=== PATIENT | male | born 1945 | race Caucasian/White ===

== ENCOUNTER 2017-11-13 19:09 | Inpatient (IN) | payer MEDICARE, BC ==
[~2017-11-13 19:09] MED LIST: Gadobenate Dimeglumine 529 MG/1 ML (20ML VIAL) ONE
[2017-11-13 20:04] LABS: #Basophils 0.1 thou/uL (0.0-0.2); #Eosinphils 0.2 thou/uL (0.0-0.7); #Lymphocytes 1.6 thou/uL (1.20-3.40); #Monocytes 0.6 thou/uL (0.11-0.59); #Neutrophils 3.3 thou/uL (1.40-6.50); %Basophils 1.6 % (0.0-1.0); %Lymphocytes 27.7 % (21.0-51.0); %Monocytes 10.2 % (0.0-10.0); %Neutrophils 57.4 % (42.0-75.0); Mean Corpuscular HGB CONC 32.8 g/dL (32.0-36.0); Mean Corpuscular Hemoglobin 30.6 pg (27.0-31.0); Mean Corpuscular Volume 93.2 fl (80.0-94.0); Mean Platelet Volume 8.4 fL (7.4-10.4); Platelet Count 198 thou/uL (130-400); RBC Distribution Width 12.6 % (11.5-14.5); White Blood Cell (WBC) Count 5.8 thou/uL (4.8-10.8)
[2017-11-13 20:12] LABS: INR-International Normal Ratio 1.1; PTT 27.5 SEC (22.9-36.1); Prothrombin Time 13.8 SEC (12.0-14.7)
[2017-11-13 20:14] LABS: Lactic Acid 0.9 mmol/L (0.5-2.2)
[2017-11-13 20:19] LABS: ALT (SGPT) 19 U/L (8-55); AST (SGOT) 18 U/L (5-34); Alkaline Phosphatase 84 U/L (40-150); Anion Gap 12 mmol/L (10-20); BUN (Urea Nitrogen) 18 mg/dL (8.4-25.7); Bilirubin, Total 0.6 mg/dL (0.2-1.2); Calc. Creatinine Clearance 0 mL/min (70-130); Calcium 9.1 mg/dL (7.8-10.44); Carbon Dioxide 28 mmol/L (23-31); Chloride 107 mmol/L (98-107); Estimated GFR-MDRD 75; Globulin 3.1 g/dL (2.4-3.5); Glucose 82 mg/dL (83-110); Potassium 3.8 mmol/L (3.5-5.1); Protein, Total 7.1 g/dL (5.8-8.1); Sodium 143 mmol/L (136-145)
[2017-11-13] MEDS ORDERED: Mag-Al 1200 mg/1200 mg/30 ML UDCUP PO PRN (20:50)
[2017-11-13] MEDS ORDERED: Milk Of Magnesia 30 ML UDCUP PO PRN (20:50)
[2017-11-13] MEDS ORDERED: Labetalol HCl 100 MG/20 ML VIAL SLOW IVP PRN (20:50)
[2017-11-13] MEDS ORDERED: Acetaminophen 325 MG TAB PO PRN (20:50)
[2017-11-13] MEDS ORDERED: niCARdipine 20MG in NaCl 200 ML BAG IVPB PRN (20:50)
[2017-11-13] MEDS ORDERED: Ondansetron HCl/PF 4 MG/2 ML Vial IVP PRN (20:50)
[2017-11-13] MEDS ORDERED: CCU Electrolyte Replacement 1 EACH IVPB ONE (20:50)
--- NOTE | 2017-11-13 20:53 | CT ---
CT OF THE BRAIN WITHOUT CONTRAST: 11/13/17 COMPARISON: 05/31/15 HISTORY: Headache and confusion of new onset. Partial aphasia. TECHNIQUE: Multiple contiguous axial images were obtained in a CT of the brain without contrast. FINDINGS: There is a 2.8 cm area of hemorrhage in the right frontal lobe. There may be a small amount of adjace nt subarachnoid hemorrhage within the sulci of the right frontal lobe. There is slight mass effect fr om edema secondary to this hemorrhage. No interventricular hemorrhage is seen. No downward shift is seen. There is no evidence of hydrocephalus. The calvarium and overlying soft tissues are unremarkable. The visualized paranasal sinuses and masto id air cells are well aerated. IMPRESSION: New right frontal lobe parenchymal hemorrhage with surrounding subarachnoid hemorrhage. An MRI of the brain is recommended on a nonemergent basis to exclude an underlying lesion as this is not a typical site for hypertensive hemorrhage. Dr. Saldana notified of the findings at 8:05 p.m. on 11/13/17. POS: PETRA
[2017-11-13] MEDS ORDERED: niCARdipine HCl 25 MG in Sodium Chloride 0.9% 250 ML 240 ML IVPB PRN (21:08)
--- NOTE | 2017-11-13 22:47 | MRI ---
MRA OF THE BRAIN WITHOUT CONTRAST: 11/13/17 COMPARISON: CT of the brain 11/13/17. HISTORY: New onset of confusion and intraparenchymal hemorrhage in the right frontal lobe. Evaluate for underl dez lesion. TECHNIQUE: An MRA of the brain was performed without contrast using 3D [id number] imaging. 3D rotational ref ormats were performed. FINDINGS: The bilateral intracranial internal carotid arteries are normal in appearance. These branch in a norm al appearing anterior and middle cerebral arteries. There is no evidence of aneurysmal dilatation, fo hans stenosis, or occlusion in the anterior circulation. Both vertebral arteries form a normal appearing basilar artery. The posterior cerebral arteries and c erebellar arteries are patent. There is no evidence of focal stenosis, occlusion or aneurysmal dilata tion in the posterior circulation. A lesion is seen in the right frontal lobe demonstrating high T1 signal and represents the areas of h emorrhage seen on CT. No obvious lesion is seen on this exam, but the MRI of the brain with contrast would be more sensitive. IMPRESSION: No significant intracranial vascular abnormality. POS: PETRA
[2017-11-13] MEDS ORDERED: Loratadine 10 MG TAB PO PRN (22:51)
[2017-11-13] MEDS ORDERED: Diabetic Tussin 200 MG/10 ML UDCUP PO PRN (22:51)
[2017-11-13] MEDS ORDERED: Temazepam 15 MG CAP PO PRN (22:51)
[2017-11-13] MEDS ORDERED: Sodium Chloride 0.65% Nasal 44 ML BOT EA NARE PRN (22:51)
[2017-11-13] MEDS ORDERED: Artificial Tears 18 DROP/0.9 ML EA EYE PRN (22:51)
[2017-11-13] MEDS ORDERED: hydrALAZINE 20 MG/ML VIAL SLOW IVP PRN (22:51)
[2017-11-13] MEDS ORDERED: Ondansetron ODT 4 MG TAB PO PRN (22:51)
[2017-11-13] MEDS ORDERED: Senokot 8.6 MG TAB PO PRN (22:51)
[2017-11-13] MEDS ORDERED: HYDROcodone/Acetaminophen 5/325 mg Tablet PO PRN (22:51)
[2017-11-13] MEDS ORDERED: Eucerin (Mineral Oil/Petrolatum,White) 30 gm Jar TOP PRN (22:51)
[2017-11-13] MEDS ORDERED: Chloraseptic Spray 180 ml Bottle PO PRN (22:51)
--- NOTE | 2017-11-13 23:22 | MRI ---
MRA OF THE NECK WITHOUT AND WITH CONTRAST 11/13/17 COMPARISON: None. HISTORY: Headache and confusion. Intracranial hemorrhage. TECHNIQUE: An MRA of the neck was performed without and with IV contrast. 3D rotation reformats were performed. FINDINGS: This exam is limited secondary to significant venous contamination. On the noncontrast examination, t he common and internal carotid arteries appear to be patent without significant irregularity to sugge st significant atherosclerotic disease. The bilateral vertebral arteries also show no significant irr egularity to suggest atherosclerotic disease. IMPRESSION: No significant MRA abnormality of the neck. Please note that the postcontrast images are limited seco ndary to venous contamination. POS: GISELE
[2017-11-13] MEDS: Famotidine/PF 20 mg/2ml Vial SLOW IVP SCH (23:42)
[2017-11-13] MEDS: Sodium Chloride 0.9% 1,000 ML IV SCH (23:43)
--- NOTE | 2017-11-13 23:43 | MRI ---
MRI OF THE BRAIN WITHOUT AND WITH CONTRAST 11/13/17 COMPARISON: CT brain 11/13/17 and MRA brain 11/13/17. HISTORY: Right frontal parenchymal hemorrhage. Evaluate for underlying lesion as a cause for this hemorrhage. TECHNIQUE: Multiplanar and multisequence MR images were obtained of the brain without and with IV contrast. FINDINGS: This exam is limited secondary to significant motion artifact. There is a large area of hemorrhage in the right frontal lobe demonstrating high T1 signal and susceptibility/blooming artifact secondary t o blood products. The area where the high T1 signal is present is isodense to slightly dark on the T2 sequence. This most likely represents intracellular methemoglobin and is likely a bleed that occurre d approximately 2 to 7 days ago. There is a small amount of surrounding edema. There are scattered foci of high T2/FLAIR signal in the subcortical and periventricular white matter, likely secondary to small vessel ischemic disease. No abnormal signal is seen in the region of the h emorrhage to suggest an underlying vascular malformation or mass as a cause for this hemorrhage, but evaluation is limited given the significant motion artifact. The expected flow voids are present. The corpus callosum, pituitary, and craniocervical junction are unremarkable. The calvarium and overlying soft tissues are unremarkable. The visualized paranasal sinuses and masto id air cells are well aerated. IMPRESSION: Right frontal hemorrhage does not appear to have an underlying lesion as a cause for this hemorrhage. Evaluation is limited given the significant motion artifact on this exam. POS: [facility]
[2017-11-14 03:36] VITALS: BMI 24.7
[2017-11-14 04:45] LABS: #Basophils 0.1 thou/uL (0.0-0.2); #Eosinphils 0.2 thou/uL (0.0-0.7); #Lymphocytes 1.5 thou/uL (1.20-3.40); #Monocytes 0.5 thou/uL (0.11-0.59); #Neutrophils 3.3 thou/uL (1.40-6.50); %Basophils 1.7 % (0.0-1.0); %Eosinophils 3.5 % (0.0-10.0); %Lymphocytes 27.2 % (21.0-51.0); %Monocytes 9.5 % (0.0-10.0); %Neutrophils 58.1 % (42.0-75.0); Hemoglobin 16.2 g/dL (14.0-18.0); Mean Corpuscular HGB CONC 33.7 g/dL (32.0-36.0); Mean Corpuscular Hemoglobin 32.3 pg (27.0-31.0); Mean Corpuscular Volume 95.8 fl (80.0-94.0); Mean Platelet Volume 7.5 fL (7.4-10.4); Platelet Count 172 thou/uL (130-400); RBC Distribution Width 12.7 % (11.5-14.5); Red Blood Cell (RBC) Count 5.01 mill/uL (4.70-6.10); White Blood Cell (WBC) Count 5.6 thou/uL (4.8-10.8)
[2017-11-14 04:52] LABS: Anion Gap 12 mmol/L (10-20); BUN (Urea Nitrogen) 12 mg/dL (8.4-25.7); Calc. Creatinine Clearance 120 mL/min (70-130); Carbon Dioxide 24 mmol/L (23-31); Chloride 107 mmol/L (98-107); Estimated GFR-MDRD Greater than 90; Glucose 96 mg/dL (83-110); Potassium 3.5 mmol/L (3.5-5.1); Sodium 139 mmol/L (136-145)
[2017-11-14] MEDS: Famotidine/PF 20 mg/2ml Vial SLOW IVP SCH ×2 (09:45→21:02)
--- NOTE | 2017-11-14 10:09 | HP ---
ATTENDING PHYSICIAN: Dr. Leopoldo Al. HISTORY OF PRESENT ILLNESS: The patient is a 72-year-old male with a past medical history of hypertension and chronic expressive aphasia, who presented to the emergency department tonight at [facility] for acute altered mental status. Family reports that over the last day and a half, the patient has become progressively more confused. His states he tried to put on 2 hats and 2 pairs of pants earlier this afternoon. He also has difficulty following simple conve rsations. He was evaluated with CT head on arrival, which was notable for acute right frontal intrac ranial hemorrhage. The denies any sort of trauma. The patient takes daily aspirin, does not on any other anticoagulants. I am seeing the patient at the bedside at [facility]. He is able to tell me his name. He is unable to tell me the year, location or President of the [facility]. He is not able to follow the conversation well. He otherwise has no other focal neuro logic deficits. PAST MEDICAL HISTORY: Hypertension, chronic expressive aphasia for the last year and a half with unc lear etiology, despite extensive neurologic workup. PAST SURGICAL HISTORY: The patient denies any prior surgery. SOCIAL HISTORY: The patient does not smoke, drink or use any drugs. SOCIAL HISTORY: The patient is . ALLERGIES: The patient is allergic to PENICILLIN. REVIEW OF SYSTEMS: Per HPI. PHYSICAL EXAMINATION: VITAL SIGNS: BP 157/93, pulse 69, respiration is 20, temperature is 98.8. The patient is 96% on tiffanie m air. CONSTITUTIONAL: A and O x1. He is unable to tell me date, location or president. He is able to tel l me his name. He is in no acute distress. HEENT: Pupils equal and reactive to light. Extraocular movements intact. Sclerae is white. ENT: Oral mucosa is pink intact and moist. He has normal voice. NECK: Nontender to palpation. Free active range of motion. No meningismus or nuchal rigidity. RESPIRATORY: Symmetric chest expansion. No evidence of respiratory distress. CARDIOVASCULAR: Regular rate and rhythm. MUSCULOSKELETAL: Good muscle tone to bilateral upper and lower extremities. No focal weakness is ap preciated. NEUROLOGIC: The patient is oriented to person. He has normal clear speech, but some difficulty with word finding. Normal cranial nerve exam. No focal motor deficits are appreciated. ASSESSMENT AND PLAN: The patient appears to have acute right frontal intracranial hemorrhage. Etiol ogy is unclear. It is unlikely to be hypertensive. We will plan to evaluate further with MRI of the brain with and without contrast and MRI of the head and neck. The patient will be admitted to the [facility] for q.1 neuro checks and close monitoring. I have also consulted critical care in the Hospitalist Service for assistance in medical management. Head of bed will be elevated to 30 degrees. Systolic blood pressure goal is less than 150. I have discussed this plan with Dr. Al, who is in agree ment. Please reach out the Neurosurgery service for additional questions or concerns.
--- NOTE | 2017-11-14 15:41 | CON ---
DATE OF CONSULTATION: 11/13/2017 DATE OF SERVICE: 11/13/2017 PRIMARY CARE PHYSICIAN: Dr. Tapia. REASON FOR ADMISSION: Intracranial hemorrhage. REASON FOR CONSULT: Medical co-management. PRIMARY ATTENDING: Dr. Leopoldo Al. HISTORY OF PRESENT ILLNESS: A 72-year-old male who was initially taken to [facility] Room for headache and altered mental status that was started last night. The patient appeared confused yesterday, but he did not have any stroke symptoms and was not concerned about, but today he was having headache. He was given Tylenol, but the headache did not improve. Normally his headache improves with Tylenol, but this time it did not improve and the patient was confused. That is why the patient was brought to emergency room, the patient did not have any weakness or paraesthesia on either side. The patient was behaving strange. He was putting 2 pairs of jeans, 2 hats at the same time and the patient was trying to pack for trip that has not started yet, several times and that is why the patient's was concerned about. The patient was sweaty and hot yesterday evening. He was having severe headache, which has not responded to normal use of Tylenol. REVIEW OF SYSTEMS: Please see my HPI for pertinent positive and negative. All other review of systems reviewed and negative except as mentioned in the HPI. The following complete review of systems was negative, unless otherwise mentioned in the HPI or below: Constitutional: Weight loss or gain, ability to conduct usual activities. Skin: Rash, itching. Eyes: Double vision, pain. ENT/Mouth: Nose bleeding, neck stiffness, pain, tenderness. Cardiovascular: Palpitations, dyspnea on exertion, orthopnea. Respiratory: Shortness of breath, wheezing, cough, hemoptysis, fever or night sweats. Gastrointestinal: Poor appetite, abdominal pain, heartburn, nausea, vomiting, constipation, or diarrhea. Genitourinary: Urgency, frequency, dysuria, nocturia. Musculoskeletal: Pain, swelling. Neurologic/Psychiatric: Anxiety, depression. Allergy/Immunologic: Skin rash, bleeding tendency. PAST MEDICAL HISTORY: Hypertension, dyslipidemia, history of PCI in 2016. PAST SURGICAL HISTORY: Reviewed and negative. PAST PSYCHIATRIC HISTORY: Reviewed and negative. SOCIAL HISTORY: The patient is . He denies any tobacco, alcohol or illicit drug abuse. He lives at home with his . FAMILY HISTORY: No strong family history of premature coronary artery disease, stroke or cancer. ALLERGIES: PENICILLIN. CURRENT HOME MEDICATIONS: Coreg 12.5 mg daily, Lipitor 20 mg p.o. daily, losartan 1 tablet p.o. daily, Namenda daily. EMERGENCY ROOM COURSE: Reviewed. PHYSICAL EXAMINATION: VITAL SIGNS: At the emergency room, blood pressure 157/93, pulse 69, respiratory rate 20, temperature 98.9, saturation 96% on room air, weight 93.4 kilograms. GENERAL: The patient is currently hypertensive, nontoxic, no distress. HEENT: Normocephalic, atraumatic. Eyes: Pupils round, reactive to light. Extraocular muscle intact. ENT: Oropharynx within normal limits. Moist mucous membrane, no oral lesion, no pharyngeal erythema, no exudate. NECK: Supple, no JVD, no thyromegaly, no carotid bruit. LUNGS: Clear to auscultation without any rhonchi or rales. CARDIAC: S1, S2 appears regular. No murmur, no gallop, no rub. ABDOMEN: Soft, bowel sounds present, nontender, nondistended. No organomegaly , no mass, no suprapubic tenderness. BACK: Unremarkable, no CVA tenderness. EXTREMITIES: Upper extremity passive movement of all joints are normal. Lower extremities, no edema. Good peripheral pulsation. SKIN: No skin rash. HEMATOLOGICAL: No lymphadenopathy. NEUROLOGIC: The patient is currently alert, oriented, slightly appears confused. Speech normal. Motor and sensation within normal limits. Grossly nonfocal neurological deficit. No cerebellar sign. PSYCHIATRIC: Normal affect. SIGNIFICANT LABORATORY: EKG showing normal sinus rhythm, nonspecific ST-T changes. CT brain showing acute frontal parenchymal brain bleed, no shift or herniation, MR angiography brain, no vascular abnormality. MRI brain with neck angiography, no vascular abnormality in the neck. CBC: WBC 5.8, hemoglobin 15.0, platelet 198. INR 1.1. BMP: Sodium 143, potassium 3.8, chloride 107, carbon dioxide 28, anion gap 12, BUN 18, creatinine 0.98, glucose 82, calcium 9.1, lactic acid 0.9. LFT: AST 18, ALT 19, alkaline phosphatase was 84, albumin 4.0. TSH 1.07. ASSESSMENT AND PLAN: 1. Right frontal hemorrhage. Etiology uncertain, doubt related with hypertension. MR angiography of brain and MR angiography of neck, is also negative for any vascular abnormality. At this point, the patient is admitted under neurosurgeon. The patient will be closely monitored in CCU overnight, if remain stable, then we will consider transferring him to stroke floor tomorrow. We will avoid any antiplatelet or anticoagulant because of intracranial hemorrhage. We will continue Cardene drip to control his blood pressure. We will closely monitor neurologically. Further treatment plan will defer to primary team. He will need PT, OT, and stroke team evaluation while in hospital. 2. Hypertension. Currently, the patient is on Cardene drip and we will use parenteral hydralazine and labetalol p.r.n. basis. We will resume patient's home medication including losartan and Coreg once medication reconciliation done. 3. Dyslipidemia. We will continue Lipitor 20 mg p.o. daily. 4. Dementia. We will continue Namenda as per home dosage. 5. Deep venous thrombosis prophylaxis. Sequential compression device boots. No Lovenox because of intracranial bleeding. 6. GI prophylaxis, Pepcid 20 mg IV b.i.d. 7. Code status: The patient is FULL CODE. The patient's is surrogate decision maker. DISPOSITION PLAN: Based on clinical course, we are expecting patient's stay in hospital more than 2 midnights. Plan of care discussed with the patient and family member in detail. Thank you for the consult. We will follow up with you daily basis in hospital. TANYA
--- NOTE | 2017-11-14 17:32 | PDOC.PN ---
- Subjective Encounter Start Date: 11/14/17 Encounter Start Time: 14:20 -: old records requested/rev Pt seen and examined, chart reviewe din its entirety, this is my first visit with this patient. Pt admitted for right frontal hemorrhage, placed in ICU, admitted by Dr Al , we were consulted for med management. overnight, no changes in size, pt remains alert and oriented, forgetful and impulsive. No F/C, no N/V/D/C, no CP or sOB. Son at bedside, updated to plans OK's by NSG to move to stroke floor 10 point ROS performed and neg for all systems except as per HPI - Objective Resuscitation Status: Resuscitation Status FULL:Full Resuscitation MAR Reviewed: Yes Vital Signs & Weight: Vital Signs (12 hours) Temp Pulse Pulse Pulse Resp BP BP 11/14/17 16:00 98.4 F 11/14/17 12:00 98.5 F 11/14/17 11:55 54 L 64 131/76 132/87 11/14/17 09:47 58 L 62 122/78 11/14/17 08:00 98.1 F 60 21 H 11/14/17 07:00 98.1 F Pulse Ox Pulse Ox Pulse Ox 11/14/17 16:00 11/14/17 12:00 11/14/17 11:55 11/14/17 09:47 100 100 11/14/17 08:00 96 11/14/17 07:00 Weight Weight 207 lb 0.225 oz Most Recent Monitor Data Heart Rate from ECG 60 NIBP 116/73 NIBP BP-Mean 80 Respiration from ECG 22 SpO2 100 I&O: 11/13/17 11/14/17 11/15/17 06:59 06:59 06:59 Intake Total 1146 1190 Output Total 1800 200 Balance -654 990 Result Diagrams: 11/14/17 04:13 11/14/17 04:13 Radiology Reviewed by me: Yes EKG Reviewed by me: Yes Phys Exam - Physical Examination Constitutional: NAD HEENT: PERRLA, moist MMs, sclera anicteric, oral pharynx no lesions Neck: no nodes, no JVD, supple, full ROM Respiratory: no wheezing, no rales, no rhonchi, clear to auscultation bilateral Cardiovascular: RRR, no significant murmur, no rub Gastrointestinal: soft, non-tender, no distention, positive bowel sounds Musculoskeletal: no edema, pulses present Neurological: non-focal, normal sensation, moves all 4 limbs Lymphatic: no nodes Psychiatric: normal affect, A&O x 3 Skin: no rash, normal turgor, cap refill <2 seconds Dx/Plan (1) Punctate hemorrhage of right frontal lobe Code(s): I61.1 - NONTRAUMATIC INTCRBL HEMORRHAGE IN HEMISPHERE, CORTICAL Status: Acute (2) Intracranial hemorrhage, spontaneous intraparenchymal, associated with hypertension, acute Code(s): I61.9 - NONTRAUMATIC INTRACEREBRAL HEMORRHAGE, UNSPECIFIED; I10 - ESSENTIAL (PRIMARY) HYPERTENSION Status: Acute (3) Metabolic encephalopathy Code(s): G93.41 - METABOLIC ENCEPHALOPATHY Status: Acute (4) HTN (hypertension) Code(s): I10 - ESSENTIAL (PRIMARY) HYPERTENSION Status: Chronic Qualifiers: Hypertension type: essential hypertension Qualified Code(s): I10 - Essential (primary) hypertension (5) HLD (hyperlipidemia) Code(s): E78.5 - HYPERLIPIDEMIA, UNSPECIFIED Status: Chronic Qualifiers: Hyperlipidemia type: unspecified Qualified Code(s): E78.5 - Hyperlipidemia , unspecified (6) Dementia Code(s): F03.90 - UNSPECIFIED DEMENTIA WITHOUT BEHAVIORAL DISTURBANCE Status: Acute Qualifiers: Dementia type: unspecified type Dementia behavioral disturbance: with behavioral disturbance Qualified Code(s): F03.91 - Unspecified dementia with behavioral disturbance - Plan cont current plan of care, plan discussed w/ family, PT/OT, out of bed/ambulate * .
[2017-11-14] MEDS: Sodium Chloride 0.9% 1,000 ML IV SCH (18:23)
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
[2017-11-15] MEDS: Famotidine 20 MG TAB PO SCH ×2 (08:35→21:45)
[2017-11-15] MEDS ORDERED: FLU VACC TS2017-18 (>65YR) 0.5 ML SYRINGE IM ONE (09:00)
[2017-11-15] MEDS ORDERED: Ziprasidone 20 MG VIAL IM SCH (13:30)
--- NOTE | 2017-11-15 16:56 | PRG ---
DATE OF SERVICE: 11/15/2017 SUBJECTIVE: Jose stable overnight. OBJECTIVE: VITAL SIGNS: His vital signs are stable. He is afebrile, heart rates in the 90s, respiratory rate 1 8, sats 97% on room air, blood pressure 143/97. LUNGS: Unchanged. HEART: Unchanged. ABDOMEN: Unchanged. He is scheduled to transfer out of the Critical Care Unit to the stroke unit. This is reasonable. W e will sign off.
--- NOTE | 2017-11-15 21:08 | PDOC.PN ---
- Subjective Encounter Start Date: 11/15/17 Encounter Start Time: 12:00 Pt walking around with his in the ICU. MS better, but still nowhere near normal. No F/C, no N/V/d/C, no CP, denies SOB. Awisting a bed on Stroke unit. still impulsiuve and not acting like his usual self, no focal neuro deficits or changed noted 10 point ROS performed and neg for all systems except as above - Objective Resuscitation Status: Resuscitation Status FULL:Full Resuscitation MAR Reviewed: Yes Vital Signs & Weight: Vital Signs (12 hours) Temp Pulse Resp BP Pulse Ox 11/15/17 19:15 98.4 F 101 H 16 139/80 95 11/15/17 16:00 98.2 F 67 18 136/79 97 11/15/17 13:54 97.3 F L 93 18 143/97 H 97 11/15/17 12:00 98.8 F Weight Weight 206 lb 9.17 oz Most Recent Monitor Data Heart Rate from ECG 92 NIBP 142/93 NIBP BP-Mean 100 Respiration from ECG 26 SpO2 96 I&O: 11/14/17 11/15/17 11/16/17 06:59 06:59 06:59 Intake Total 1146 1630 600 Output Total 1800 700 600 Balance -654 930 0 Result Diagrams: 11/14/17 04:13 11/14/17 04:13 Radiology Reviewed by me: Yes Phys Exam - Physical Examination Constitutional: NAD HEENT: PERRLA, moist MMs, sclera anicteric, oral pharynx no lesions Neck: no nodes, no JVD, supple, full ROM Respiratory: no wheezing, no rales, no rhonchi, clear to auscultation bilateral Cardiovascular: RRR, no significant murmur, no rub Gastrointestinal: soft, non-tender, no distention, positive bowel sounds Musculoskeletal: no edema, pulses present Neurological: non-focal, normal sensation, moves all 4 limbs Lymphatic: no nodes Skin: no rash, normal turgor, cap refill <2 seconds Dx/Plan (1) Punctate hemorrhage of right frontal lobe Code(s): I61.1 - NONTRAUMATIC INTCRBL HEMORRHAGE IN HEMISPHERE, CORTICAL Status: Acute (2) Intracranial hemorrhage, spontaneous intraparenchymal, associated with hypertension, acute Code(s): I61.9 - NONTRAUMATIC INTRACEREBRAL HEMORRHAGE, UNSPECIFIED; I10 - ESSENTIAL (PRIMARY) HYPERTENSION Status: Acute (3) Metabolic encephalopathy Code(s): G93.41 - METABOLIC ENCEPHALOPATHY Status: Acute (4) HTN (hypertension) Code(s): I10 - ESSENTIAL (PRIMARY) HYPERTENSION Status: Chronic Qualifiers: Hypertension type: essential hypertension Qualified Code(s): I10 - Essential (primary) hypertension (5) HLD (hyperlipidemia) Code(s): E78.5 - HYPERLIPIDEMIA, UNSPECIFIED Status: Chronic Qualifiers: Hyperlipidemia type: unspecified Qualified Code(s): E78.5 - Hyperlipidemia , unspecified (6) Dementia Code(s): F03.90 - UNSPECIFIED DEMENTIA WITHOUT BEHAVIORAL DISTURBANCE Status: Acute Qualifiers: Dementia type: unspecified type Dementia behavioral disturbance: with behavioral disturbance Qualified Code(s): F03.91 - Unspecified dementia with behavioral disturbance - Plan cont current plan of care, plan discussed w/ family, PT/OT, director social welfare, speech therapy, out of bed/ambulate * .
[2017-11-16] MEDS: Famotidine 20 MG TAB PO SCH (08:35)
[2017-11-16] MEDS ORDERED: Non-Formulary Item 1 EACH (Carvedilol [Carvedilol] 12.5 MG) PO SCH (09:00)
--- NOTE | 2017-11-16 09:10 | PRG ---
DATE OF SERVICE: 11/16/2017 Mr. Garcia is now hospital day #3 after sustaining a right frontal intraparenchymal hemorrhage. The patient states he is doing well. He does not complain of headache or blurred vision or nausea or vomiting. He has been working with therapy. He is able to follow commands in all 4 extremities. Kashmir wilkins is actually smiling today during the exam. I have discussed his case with Dr. Dobson, who is the a ttending at this time. The patient is stable for discharge from a neurosurgical standpoint and accor ding to Dr. Dobson, the patient has good care at home including 24-hour nursing and his will be at home too. From our standpoint, he is cleared for discharge at this time. We will arrange for ulysses ropriate outpatient followup. Please call with any questions or changes in the patient's neurologic status. Would suggest holding any type of anticoagulants or blood thinners until seen by Neurosurger rose
[2017-11-16 11:50] VITALS: TEMP 98.3
[2017-11-16 13:03] VITALS: BP 123/73
[2017-11-16] MEDS ORDERED: Atorvastatin Calcium 20 MG TAB PO SCH (21:00)
--- NOTE | 2017-11-20 15:56 | EKG ---
Test Reason : Blood Pressure : / mmHG Vent. Rate : 064 BPM Atrial Rate : 064 BPM P-R Int : 124 ms QRS Dur : 074 ms QT Int : 390 ms P-R-T Axes : 030 018 021 degrees QTc Int : 402 ms Normal sinus rhythm Possible Left atrial enlargement Nonspecific ST abnormality Borderline ECG Confirmed by HILARIA GARDNER, DEVON ([id number]), copy editor BE BARON ([id number]) on 11/20/2017 3:55:36 PM Referred By: Confirmed By:DEVON MANRIQUE MD
--- NOTE | 2017-12-09 04:07 | CON ---
DATE OF CONSULTATION: 12/08/2017 HISTORY OF PRESENT ILLNESS: Mr. Garcia is a 72-year-old male with past medical history of hypert ension, chronic expressive aphasia, who presented to the Emergency Department on 11/13/2017 with acut e mental status changes and right frontal intraparenchymal hematoma. At the time, he was seen in the Emergency Department and evaluated by Dr. Iveth Sharif and Dr. Al. From the reports at that admission, he had difficulty following simple conversations and he was acting strangely such as putti ng on several pairs of clothes on top of each other. He was having trouble with aphasia and word fin ding at that time. He did not follow conversation well and he was unable to tell location or who was the president of [facility]. When I saw him in his room after he presented with acute mental sta tus changes for this admission on 12/07/2017, his exam was very familiar with what was documented at his previous admission. He is still unable to carry on a fluent conversation and he has aphasia and trouble word finding. Otherwise, he has no other neurologic deficits. He is unable to tell location the president or his first name or where he lives. I compared CT scans of this admission compared t o last admission and the CT scan was stable. The right frontal hemorrhage, the majority has resolved ; however, there is some slight vasogenic edema surrounding the right frontal contusion. PAST MEDICAL HISTORY: Include, hypertension, chronic expressive aphasia for the last year and of unc lear etiology, despite extensive neurologic workup, right frontal contusion, hypertension, dyslipidem ia, and coronary artery disease. PAST SURGICAL HISTORY: Includes cardiac catheterization with PCI in 2016. CURRENT MEDICATIONS: 1. Lipitor 20 mg p.o. at bedtime. 2. Carvedilol 12.5 mg p.o. daily. 3. Haldol 2 mg p.o. daily up and 4 mg p.o. at bedtime. 4. Amitone 10 mg p.o. daily. 5. Seroquel 25 mg p.o. at bedtime. ALLERGIES: PENICILLIN. FAMILY HISTORY: No known inheritable diseases for the patient. 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 No current alcohol, tobacco or illicit virgil g use. REVIEW OF SYSTEMS: Ten-point review of systems complete is otherwise negative unless stated above HP I. PHYSICAL EXAMINATION: VITAL SIGNS: On admission, blood pressure is 143/95, pulse 66, respiratory rate is 19, temperature 9 8.5, and O2 saturation 96% on room air. GENERAL: A 72-year-old male, alert and oriented x1, pleasant, in no acute distress, has ap hasia. HEENT: Normocephalic, atraumatic. Hearing intact. Moist mucous membranes. Trachea is midline. EY ES: Pupils are equal and reactive to light. Extraocular muscles are intact. Sclerae is white, can cteric. CARDIOVASCULAR: The patient has regular rate. S1 and S2 heart sounds with no distal findings or clu bbing noted. EXTREMITIES: Warm and dry to touch. Turgor is fair. There is no clubbing or cyanosis with asymmetr ic edema appreciated. Palpable pulses at the dorsal pedis, posterior tibial, and popliteal arteries bilaterally. Capillary refill less than 2 seconds. NEUROLOGIC: Cranial nerves II-XII are grossly intact. His speech is nonfluent. He is alert and ankush ented x1. Dysarthric speech and word finding difficulty. No focal weakness of the upper or lower ex tremities. The patient has not been observed ambulating during the exam, but per , he has no pro blems with ambulating. ASSESSMENT AND PLAN: We will check an MRI of the brain to further investigate edema that was develop ed as well as the ventricular system. Neurology Service has been consulted. Dr. Givens will meet with the patient and review the MRI of the brain, which has been obtained. I have discussed the ben ges and the patient with Dr. Givens and he is in agreement with my plan. Patient would likely als o benefit from some Decadron while he is here in the hospital for the edema surrounding the right fro ntal contusion. If there are any further questions, please feel free to contact Neurosurgery.
== END 2017-11-16 15:08 | disposition home health service (06) | DRG 64 ==
LOC: SCSER 19:09 → CCU 20:10 → 2SE 11-15 13:44
PROVIDERS: ADMIT Neurological Surgery; ATTEND Neurological Surgery
DX: I61.1 Nontraumatic intracerebral hemorrhage in hemisphere, cortical (principal); G93.41 Metabolic encephalopathy; R47.01 Aphasia; F03.91 Unspecified dementia, unspecified severity, with behavioral disturbance; I10 Essential (primary) hypertension; Z79.82 Long term (current) use of aspirin; R47.89 Other speech disturbances; R41.0 Disorientation, unspecified; E78.5 Hyperlipidemia, unspecified
CPT/HCPCS: 36415; 70450; 70544; 70549; 70553; 80048; 80053; 83605; 84443; 85025; 85610; 85730; 93005; A9579; G8978-GP-CJ; G8979-GP-CI; G8987-GO-CJ; G8988-GO-CI; G8996-GN-CK; G8997-GN-CJ; J3486; J7050; Q0162; S0028

== ENCOUNTER 2017-12-08 14:13 | Observation (INO) | payer MEDICARE, BC ==
[2017-12-08 14:45] LABS: INR-International Normal Ratio 1.1; PTT 28.4 SEC (22.9-36.1); Prothrombin Time 13.9 SEC (12.0-14.7)
[2017-12-08 14:46] LABS: #Basophils 0.1 thou/uL (0.0-0.2); #Eosinphils 0.2 thou/uL (0.0-0.7); #Lymphocytes 1.3 thou/uL (1.20-3.40); #Monocytes 0.4 thou/uL (0.11-0.59); #Neutrophils 3.1 thou/uL (1.40-6.50); %Basophils 1.1 % (0.0-1.0); %Eosinophils 3.5 % (0.0-10.0); %Lymphocytes 26.5 % (21.0-51.0); %Monocytes 7.3 % (0.0-10.0); %Neutrophils 61.6 % (42.0-75.0); Hemoglobin 16.1 g/dL (14.0-18.0); Mean Corpuscular HGB CONC 35.1 g/dL (32.0-36.0); Mean Corpuscular Hemoglobin 32.1 pg (27.0-31.0); Mean Corpuscular Volume 91.5 fl (80.0-94.0); Mean Platelet Volume 8.5 fL (7.4-10.4); Platelet Count 211 thou/uL (130-400)
[2017-12-08 14:54] LABS: ALT (SGPT) 19 U/L (8-55); AST (SGOT) 18 U/L (5-34); Albumin 4.1 g/dL (3.4-4.8); Alkaline Phosphatase 100 U/L (40-150); Anion Gap 13 mmol/L (10-20); BUN (Urea Nitrogen) 13 mg/dL (8.4-25.7); Bilirubin, Total 0.7 mg/dL (0.2-1.2); CK (CPK) 97 U/L (30-200); Calc. Creatinine Clearance 0 mL/min (70-130); Calcium 9.6 mg/dL (7.8-10.44); Carbon Dioxide 30 mmol/L (23-31); Chloride 104 mmol/L (98-107); Estimated GFR-MDRD 76; Globulin 3.6 g/dL (2.4-3.5); Glucose 105 mg/dL (83-110); Potassium 3.9 mmol/L (3.5-5.1); Protein, Total 7.7 g/dL (5.8-8.1); Sodium 143 mmol/L (136-145)
[2017-12-08 14:55] LABS: CKMB 1.3 ng/mL (0-6.6); Troponin I Less than 0.010 ng/mL (< 0.028)
--- NOTE | 2017-12-08 15:13 | CT ---
HEAD CT WITHOUT CONTRAST: Date: 12/08/17 COMPARISON: 11/13/17. HISTORY: Confusion, headache, difficulty speaking, and mental status changes. TECHNIQUE: Serial axial CT imaging at 4.8 mm intervals from vertex through skull base without contrast. FINDINGS: The imaged paranasal sinuses and mastoid air cells are well aerated. There is no displaced calvarial fracture. There is atherosclerotic calcification of the distal vertebral artery on the left. There is a vague area of curvilinear hyperdensity in the right frontal lobe on axial image 21. On the prior examination, there was an intraparenchymal hemorrhage in this region measuring up to 2.9 cm, s uggesting resolving hematoma. Adjacent edema is seen in the right frontal region, slightly more consp icuous than on prior imaging. There is no midline shift or mass effect. No new hemorrhage is identifi ed. IMPRESSION: Findings suggesting a resolving intra-axial hematoma in the right frontal region with surrounding haile ma. This edema is slightly more conspicuous than on prior imaging. No new hemorrhage is seen. If ther e is clinical concern for acute infarction, brain MRI advised. POS: PETRA
[2017-12-08 17:36] VITALS: BMI 26.6
[2017-12-08] MEDS ORDERED: hydrALAZINE 20 MG/ML VIAL SLOW IVP PRN (18:02)
[2017-12-08] MEDS ORDERED: Ondansetron ODT 4 MG TAB PO PRN (18:02)
[2017-12-08] MEDS ORDERED: Ondansetron HCl/PF 4 MG/2 ML Vial IVP PRN (18:02)
[2017-12-08] MEDS ORDERED: Acetaminophen 500 MG TAB PO PRN (18:02)
[2017-12-08] MEDS ORDERED: cloNIDine 0.1 MG TAB PO PRN (18:02)
--- NOTE | 2017-12-08 19:52 | HP ---
DATE OF ADMISSION: 12/08/2017 PRIMARY CARE PHYSICIAN: Dr. Coleman Tapia. CHIEF COMPLAINT: Increased confusion. HISTORY OF PRESENT ILLNESS: This is a 72-year-old male who presents to [facility] with increased confusion, difficulty with speaking, word finding difficulties and some h eadache over the last 72 hours. The history is obtained after discussions with the patient's at the bedside as well as review of electronic medical records from the emergency room and recent admis marjorie to [facility] from 11/13/2017 to 11/16/2017 status post intracranial hemorrhage with ed bailey. The patient apparently experienced a spontaneous intracranial hemorrhage, likely hypertensive i nduced managed conservatively after evaluation by Neurosurgical Services. The patient was eventually discharged home, where the reports he has had increased confusion, difficulty with word finding , memory difficulties with short and long-term events, but no specific fever, chills, falling unilate ral weakness. The patient was not discharged on any specific steroids or blood thinners and has been taking his regular chronic medications. Apparently, the patient was placed on Seroquel and has been taking this at night. reports patient does not drive, is unable to play golf like he had previ ously been able to take part on a daily basis for several years. In the emergency room, the patient underwent general evaluation including CT of the brain without contrast showing no specific evidence of acute or worsening hemorrhage in the right frontal region; however, was noted with edema, more con spicuous on the exam and prior imaging in 10/2017. Metabolic screening was essentially unremarkable and the patient's reported NIH score of 5 noted in the emergency room. [facility] PAST MEDICAL HISTORY: 1. Status post spontaneous intracranial hemorrhage of the right frontal region, 10/2017. 2. Hypertension. 3. Question progressive dementia. 4. Dyslipidemia. 5. History of coronary artery disease. PAST SURGICAL HISTORY: Status post cardiac catheterization with PCI in 2015. CURRENT MEDICATIONS: 1. Lipitor 20 mg p.o. at bedtime. 2. Carvedilol 12.5 mg p.o. daily. 3. Haldol 2 mg p.o. daily and 4 mg p.o. at bedtime. 4. Memantine 10 mg p.o. daily. 5. Seroquel 25 mg p.o. at bedtime. ALLERGIES: PENICILLIN. FAMILY HISTORY: No inheritable diseases per the patient report. SOCIAL HISTORY: The patient is , accompanied by his in the hospital. 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 No current alcohol, tobacco or illicit drug use. REVIEW OF SYSTEMS: The following complete review of systems was negative, unless otherwise mentioned in the HPI or below: Constitutional: Weight loss or gain, ability to conduct usual activities. Sk in: Rash, itching. Eyes: Double vision, pain. ENT/Mouth: Nose bleeding, neck stiffness, pain, te nderness. Cardiovascular: Palpitations, dyspnea on exertion, orthopnea. Respiratory: Shortness of breath, wheezing, cough, hemoptysis, fever or night sweats. Gastrointestinal: Poor appetite, abdom inal pain, heartburn, nausea, vomiting, constipation, or diarrhea. Genitourinary: Urgency, frequenc y, dysuria, nocturia. Musculoskeletal: Pain, swelling. Neurologic/Psychiatric: Anxiety, depressio n. Allergy/Immunologic: Skin rash, bleeding tendency. Otherwise, negative except as stated per HPI . PHYSICAL EXAMINATION: VITAL SIGNS: On admission, blood pressure 143/95, pulse 66, respiratory rate is 19, temperature 98.5 degrees Fahrenheit, and O2 saturation 96% on room air. GENERAL APPEARANCE: This is a 72-year-old male, alert and oriented x1, pleasant, in no acu te distress. HEENT: Pupils are equal, round, and reactive to light and accommodation. Extraocular muscles are in tact. No scleral icterus, no conjunctival injection. Nares patent. OP is clear. Teeth in good rep air. Oral mucosa moist. NECK: Supple, no cervical adenopathy, no thyromegaly, no carotid bruits, no JVD appreciated. Cervic al spine with full active and passive range of motion. No meningeal signs appreciated. Scalp is atr aumatic. CHEST: Lungs are clear to auscultation bilaterally. CARDIOVASCULAR: S1, S2, without noted murmur, rub or gallop. ABDOMEN: Rounded, soft, nontender, nondistended. Bowel sounds are positive in all four quadrants. No hepatosplenomegaly, no abdominal bruits, no rebound or guarding appreciated. EXTREMITIES: Warm and dry with fair turgor. No clubbing, cyanosis or asymmetric edema appreciated. Pulses palpable distally at the dorsalis pedis, posterior tibial, and popliteal arteries bilaterally . Capillary refill less than 2 seconds. NEUROLOGIC: Alert and oriented x1. Dysarthric speech with word finding difficulty. Cranial nerves II through XII are grossly intact. No focal weakness of upper or lower extremities. The patient not observed ambulatory during the exam. PERTINENT LABORATORY AND X-RAY FINDINGS: Complete metabolic profile within normal limits. Troponin negative x1. CBC within normal limits. PT 13.9, INR 1.1, PTT 28.4. CT of the brain without contras t dated 12/08/2017 showed resolving intraaxial hematoma in the right frontal region with surrounding edema. Edema more conspicuous in prior imaging. No new hemorrhage identified. EKG dated 12/08/2017 by my interpretation shows sinus mechanism with heart rates in the 70s. Normal R-wave progression n oted in precordial leads. Normal axis. No acute ST-T wave changes appreciated. ASSESSMENT AND PLAN: 1. Acute encephalopathy. The patient will be observed on the stroke unit. Suspect secondarily to i ncreased edema associated with prior intracranial hemorrhage. We will initiate Decadron 4 mg IV q.6 hours. We will consult Neurosurgery and Neurology Service for evaluation. CT imaging also showing ad vanced cerebral atrophy and prominence of intraventricular system. 2. History of intracranial hemorrhage, spontaneous with edema. See #1 above. Check MRI imaging of the brain to further elucidate extent of edema as well as ventricular system. Consult Neurosurgery a nd Neurology Services. 3. Expressive dysphagia. Suspect acute on chronic. See #1 and #2 above. 4. Progressive dementia. The exact etiology is unclear. Suspect related to advanced cerebral atrop hy and questionable component of hydrocephalus. See #1 and #2 above. 5. Hypertension. Resume home antihypertensive regimen and monitor clinical response.6. Prophylaxis . Sequential compression devices while in bed. Pepcid 20 mg p.o. b.i.d. PT evaluation in the a.m. 6. Code status is FULL. Surrogate medical decision maker is the patient's spouse.
[2017-12-08] MEDS: Dexamethasone 4 mg/ml Vial SLOW IVP SCH (20:01)
[2017-12-08] MEDS: Famotidine 20 MG TAB PO SCH (20:01)
[2017-12-08] MEDS ORDERED: Haloperidol 1 MG TAB PO SCH (21:00)
[2017-12-08] MEDS ORDERED: HALOPERIDOL PO SCH (21:00)
[2017-12-09] MEDS: Dexamethasone 4 mg/ml Vial SLOW IVP SCH ×3 (02:47→14:03)
[2017-12-09] MEDS ORDERED: Haloperidol 1 MG TAB PO SCH ×2 (05:45→09:00)
[2017-12-09 08:20] LABS: ALT (SGPT) 22 U/L (8-55); AST (SGOT) 19 U/L (5-34); Albumin 4.6 g/dL (3.4-4.8); Alkaline Phosphatase 119 U/L (40-150); Anion Gap 16 mmol/L (10-20); BUN (Urea Nitrogen) 15 mg/dL (8.4-25.7); Bilirubin, Total 0.8 mg/dL (0.2-1.2); Calc. Creatinine Clearance 88 mL/min (70-130); Calcium 10.1 mg/dL (7.8-10.44); Carbon Dioxide 25 mmol/L (23-31); Chloride 103 mmol/L (98-107); Estimated GFR-MDRD 70; Globulin 3.9 g/dL (2.4-3.5); Glucose 180 mg/dL (83-110); Potassium 4.1 mmol/L (3.5-5.1); Protein, Total 8.5 g/dL (5.8-8.1); Sodium 140 mmol/L (136-145)
[2017-12-09] MEDS ORDERED: Non-Formulary Item 1 EACH (Carvedilol [Carvedilol] 12.5 MG) PO SCH (09:00)
[2017-12-09] MEDS ORDERED: Carvedilol 6.25 MG TAB PO SCH (09:00)
[2017-12-09] MEDS ORDERED: Atorvastatin Calcium 20 MG TAB PO SCH (09:00)
[2017-12-09] MEDS ORDERED: HALOPERIDOL 2 MG PO SCH (09:00)
[2017-12-09 09:51] LABS: Hemoglobin 17.1 g/dL (14.0-18.0); Lymphocytes 11 % (21-51); MDiff Complete? YES; Mean Corpuscular HGB CONC 33.6 g/dL (32.0-36.0); Mean Corpuscular Hemoglobin 32.1 pg (27.0-31.0); Mean Corpuscular Volume 95.6 fl (80.0-94.0); Mean Platelet Volume 7.6 fL (7.4-10.4); Monocytes 1 % (0-10); Neutrophil 88 % (42-75); PLT Morphology Comment Appears Adequate; Platelet Count 255 thou/uL (130-400); RBC Distribution Width 12.2 % (11.5-14.5); RBC Morphology Normal; Red Blood Cell (RBC) Count 5.32 mill/uL (4.70-6.10); White Blood Cell (WBC) Count 7.5 thou/uL (4.8-10.8)
--- NOTE | 2017-12-09 09:57 | PRG ---
DATE OF SERVICE: 12/09/2017 I personally interviewed and examined the patient and agree with documentation of Flip Kenney PA-C, d ated 12/08/2017. Briefly, Dickson Garcia is a 72-year-old gentleman admitted on 11/13/2017 with right frontal intrace rebral hemorrhage. This was treated nonsurgically. He returned with some deterioration of his menta l status. CT imaging of the brain showed resolution of blood products and some continued a hypodensi ty in the brain surrounding the area of hemorrhage suggestive of edema. There is no midline shift or other mass effect. The original MR images do not show contrast enhancing lesion, but there are comp licated by the presence of blood products. Mr. Garcia was seen early this morning and has been sent for MR imaging of the brain. We await h is return. Plan for Mr. Garcia is still look for any mass lesion that could have hemorrhaged, be en obscured by blood products, and is now visible and contrast enhancing. If we do find a contrast e nhancing lesion suggestive of a neoplasm, we will recommend conservative management ongoing and the a ddition of a slightly higher dose of corticosteroids for control of the edema. We will follow up aft er imaging is done.
[2017-12-09] MEDS: Famotidine 20 MG TAB PO SCH (10:18)
[2017-12-09 12:58] VITALS: TEMP 97.4
--- NOTE | 2017-12-09 13:03 | MRI ---
BRAIN MRI WITH AND WITHOUT CONTRAST: Date: 12/09/17 COMPARISON: 11/13/17. HISTORY: Confusion and headaches, difficulty speaking, recent intracranial hemorrhage. TECHNIQUE: Multiplanar, multisequence MR imaging of the brain is provided with and without contrast. FINDINGS: The diffusion-weighted imaging demonstrates no evidence for acute infarction. Within the right frontal lobe, there is an intra-axial hematoma which measures 2.9 cm in transverse d imension x 2.1 cm in AP dimension, more well defined on this examination when compared to the 8 exam. The hemorrhage itself is larger than on the prior exam, previously measuring in the 2.5 x 1.9 cm range. However, the surrounding vasogenic edema is slightly improved. The diffusion-weighted imaging demonstrates no evidence for acute infarction. The right frontal intra-axial hematoma demonstrates a peripheral T1 hyperintensity and central T1 iso intensity. On FLAIR, it is centrally hyperintense with a peripheral hypointense rim. The gradient echo imaging demonstrates peripheral blooming of the hemorrhage in the right frontal reg ion. No new hemorrhage is evident on this exam. Lateral ventricles and third ventricle demonstrate stable prominence. The postcontrast imaging demonstrates leptomeningeal enhancement in the right frontal region in the r egion of the above described intra-axial hemorrhage which could signify reactive change. No evidence for an underlying enhancing lesion is seen in this region. Postcontrast imaging appears grossly unremarkable otherwise. The arterial flow-voids at axial level of skull base appear grossly unremarkable on the T2-weighted i maging. Imaged paranasal sinuses and mastoid air cells are well aerated. IMPRESSION: Persistent intra-axial hemorrhage in the right frontal region. No evidence for an associated underlyi ng enhancing lesion. There is surrounding vasogenic edema and mild adjacent leptomeningeal enhancemen t, nonspecific. No new hemorrhage is seen and there is no evidence for acute infarction. Close follow -up imaging to document resolution is advised. CODE T. POS: PETRA
--- NOTE | 2017-12-09 15:20 | CON ---
DATE OF CONSULTATION: 12/09/2017 HISTORY OF PRESENT ILLNESS: Patient is a 72-year-old man who is here for evaluation of possible alte red mental status. Son was in the room and he reports patient has had intracerebral hemorrhage about 3 weeks ago and he has been discharged and he has been aphasic and they are here because his mother thought patient is not improving, likely he should and there was some worsening and they want to make sure he did not have another bleed or any other neurological event. He has a neurologist who he is seeing as outpatient at this time. He has difficulty with speaking, word finding difficulties and pe r chart he also had some headaches and patient was recently admitted on 11/13/2017 for intracerebral hemorrhage and he was discharged home and he was also seen by Neurosurgery and Neurology and he is ba ck at home receiving physical therapy. He was placed on Seroquel for confusion and he does not drive and is unable to play golf, but he is walking. He is receiving therapy at home. There has been audra e worsening and family wants to make sure he is okay. PREVIOUS MEDICAL HISTORY: Spontaneous intracerebral hemorrhage in right frontal area, hypertension, possible dementia in the past, dyslipidemia, and history of coronary artery disease. PAST SURGICAL HISTORY: Cardiac catheterization in 2016. MEDICATIONS AT HOME: He is on Lipitor, carvedilol, haloperidol, Seroquel and memantine. ALLERGIES: PENICILLIN. FAMILY HISTORY: No history of stroke, except for his father who had strokes. SOCIAL HISTORY: He is . He lives with his and he does not smoke or drink. REVIEW OF SYSTEMS: Difficult to obtain from this patient who is aphasic. PHYSICAL EXAMINATION: VITAL SIGNS: Blood pressure 145/99, pulse 105, temperature 97.3. GENERAL APPEARANCE: Well-built, well-nourished, very tall gentleman who seems comfortable. CHEST: Clear vesicular breathing. CARDIOVASCULAR: S1 and S2 heard, no murmurs. Carotids are clear. ABDOMEN: Soft, nontender, no organomegaly noted. NEUROLOGIC: Higher intellectual functions. Difficult to assess orientation, but seems to know where he is and oriented to person and place. Does not give appropriate answers to questions due to aphas ia and he seems to mainly have expressive aphasia. Cranial nerves II-XII normal. Normal fundus exam ination. Normal extraocular movements. No facial asymmetry noted. Normal sensation of face bilater ally and tongue midline, no atrophy noted. Normal elevation of palate. Pupils reactive to light and fundus normal. Normal hearing bilaterally. MOTOR: Bulk normal, tone normal. Strength 5/5 in iliopsoas, hamstrings, quadriceps, ankle dorsiflex ion, plantar flexion, deltoid, biceps, wrist extension/flexion, finger extension and flexion bilatera lly. Deep tendon reflexes were 2+ throughout in upper and lower extremities in biceps, brachioradial is, and triceps and knee jerks and ankle jerks. SENSORY: Normal to touch, pinprick and vibration. Proprioception is difficult to assess due to his aphasia. Cerebellar: Normal cwdylr-du-ljjt and rcrc-rb-owud. Gait; he is fairly stable and he is w alking. LABORATORY DATA AND IMAGING DATA: White count 7.5, hemoglobin 17.1, hematocrit 50.9, and platelets 2 55. PT 13.9, INR 1.1, PTT 28.4. Chemistry: Sodium 140, potassium 4.1, chloride 103, bicarbonate 25 , BUN 15, creatinine 1.05, albumin 4.6, globulin 3.9 and albumin globulin ratio is 1.2. CT scan of t he head performed yesterday shows findings suggestive of resolving intraaxial hematoma in the right f rontal region with surrounding edema. Edema is slightly more conspicuous than on prior imaging. No new hemorrhages seen and MRI result is pending at this time. IMPRESSION: Patient is a 72-year-old man who recently had intracerebral bleed. His MRI at that time did not show any underlying mass lesion, but he is currently waiting the MRI report from today. He does have a neurologist who is also looking after him. I am not sure why he is on haloperidol along with quetiapine, which seems to be interesting regimen for someone with aphasia. His neurological ex amination is normal except for aphasia, mainly expressive aphasia rather than confusional state, I th ink this man has significant aphasia, which is interfering with his communications and rest of the ne urological exam is normal. RECOMMENDATIONS: 1. Please reevaluate the need for haloperidol. 2. I will follow up on the MRI imaging. 3. If MRI imaging is stable, he could possibly go home with follow up with his neurologist. 4. Please call me if you have any further questions.
[2017-12-09 16:06] VITALS: BP 134/80
[2017-12-10] MEDS ORDERED: Haloperidol 1 MG TAB PO SCH (09:00)
--- NOTE | 2017-12-10 16:47 | DIS ---
DATE OF ADMISSION: 12/08/2017 DATE OF DISCHARGE: The patient left AMA. DISCHARGE DIAGNOSES: 1. Intracranial hemorrhage not new, was spontaneous with edema. 2. Dementia. 3. Hypertension. HOSPITAL COURSE: The patient is a very pleasant 72-year-old male, who recently was discharged from [facility] on 11/16 after having a post-intracranial hemorrhage with edema. Patient was ev aluated by Neurosurgical Services. No intervention was done. However, patient's brought the pa tient back into the hospital since she felt that his confusion was worsening. Patient, during this h ospital stay, did undergo an another brain MRI, which indicated persistent intraaxial hemorrhage with right frontal region. No evidence of associated underlying enhancing lesions. There is surrounding vasogenic edema and mild adjacent leptomeningeal enhancement. No new hemorrhage is seen. Patient w as seen by Neurosurgery and Neurology. Per Neurology's recommendations, nothing to add from Neurolog y; however, Neurology did recommend not continuing Seroquel and Haldol, which I agree. Neurosurgery had not evaluated the patient's MRI, which was awaiting discharge. Neurosurgery was in the OR, and [facility] were contacted in regard to this. I also spoke with the patient's son in regard to the importanc e of getting Neurosurgery's recommendation prior to discharge. Initially son stated that he was okay and would stay. However, the nurse called me later on, on 12/09/2017, stating that the patient was not to be found in the room and the patient and son both left. The nurse did call patient's to see if the patient was at home. She stated that yes, the patient was at home. However, patient's fa alma delia did not pickling drum operator the prednisone taper script, which was written for the patient. Family was liam mmended to come back and to take the prescriptions for his vasogenic edema. Also, recommended to gilmar franky his updated medications, which would include only Seroquel q.h.s. and not Haldol and Seroquel. Upo n my evaluation yesterday. VITAL SIGNS: Appeared to be stable, 97.4, 145/80, 95, 18, 96% room air. GENERAL: He was awake, alert, oriented x3, very pleasantly confused. CARDIOVASCULAR: S1 and S2 present. No murmurs, rubs, or gallops. LUNGS: Clear to auscultation, no rhonchi or wheezes noted. ABDOMEN: Soft, nontender. Bowel sounds present x2. DISCHARGE MEDICATIONS: The patient's medication that I was supposed to send him home with was carved ilol 12.5 mg daily, atorvastatin 20 mg daily, Seroquel 25 mg p.o. at bedtime, Pepcid 20 mg p.o. b.i.d ., memantine 10 mg p.o. daily, and Decadron taper. However, patient left against medical advice.
== END 2017-12-09 17:00 | disposition left against medical advice (07) ==
LOC: SCSER 14:13 → 2SE 16:45
PROVIDERS: ADMIT Internal Medicine; ATTEND Internal Medicine
DX: I62.9 Nontraumatic intracranial hemorrhage, unspecified (principal); G93.49 Other encephalopathy; R47.02 Dysphasia; R47.89 Other speech disturbances; I10 Essential (primary) hypertension; F03.90 Unspecified dementia, unspecified severity, without behavioral disturbance, psychotic disturbance, mood disturbance, and anxiety; I25.10 Atherosclerotic heart disease of native coronary artery without angina pectoris; Z53.21 Procedure and treatment not carried out due to patient leaving prior to being seen by health care provider; Z79.899 Other long term (current) drug therapy; Z88.0 Allergy status to penicillin
CPT/HCPCS: 70450; 70553; 80053 ×2; 82550; 82553; 82962; 84484; 85007; 85025; 85027; 85610; 85730; 93005; 96374; 96376; 97139; 99285; G0378; G8978; G8979; G8980; 36415; 36416; A4216; J1100

== ENCOUNTER 2017-12-25 12:44 | Outpatient (CLI) | payer MEDICARE, BC ==
--- NOTE | 2017-12-25 14:30 | CT ---
CT OF THE BRAIN WITHOUT CONTRAST: COMPARISON: 12/08/17. History Followup cerebral hemorrhage. TECHNIQUE: Multiple contiguous axial images were obtained in a CT of the brain without contrast. FINDINGS: There is continued evolution and resolution of the previously seen right frontal lobe hyperdensity wh ich represented a hemorrhage. There is no evidence of hydrocephalus or extraaxial fluid collection. The calvarium and overlying soft tissues are unremarkable. The visualized paranasal sinuses and mast oid air cells are well aerated. IMPRESSION: Evolution of right frontal lobe intraaxial hemorrhage. POS: [facility]
== END 2017-12-25 12:45 | disposition home or self-care (01) ==
LOC: TBSIIMAG 12:44
PROVIDERS: ATTEND Neurological Surgery
DX: I61.9 Nontraumatic intracerebral hemorrhage, unspecified (principal)
CPT/HCPCS: 70450